=== PATIENT | male | born 1985 | race Caucasian/White ===

== ENCOUNTER 2018-09-28 09:51 | Emergency (ER) | payer SELFPAY ==
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
== END 2018-09-28 12:30 | disposition home or self-care (01) ==
LOC: ER 09:51
DX: S43.401A Unspecified sprain of right shoulder joint, initial encounter (principal); M75.101 Unspecified rotator cuff tear or rupture of right shoulder, not specified as traumatic; V49.9XXA Car occupant (driver) (passenger) injured in unspecified traffic accident, initial encounter; F17.210 Nicotine dependence, cigarettes, uncomplicated
CPT/HCPCS: 99283

== ENCOUNTER 2023-01-03 12:21 | Emergency (ER) | payer SELFPAY ==
[2023-01-03] MEDS ORDERED: DIAZEPAM 10 MG/2 ML INJ SYRINGE ONE (12:59)
[2023-01-03 13:22] LABS: Absolute Lymphocytes (CBC) 2.1 K/uL (0.7-4.9); Hematocrit 45.9 % (39.6-49.0); Lymphocytes % 26.3 % (15.3-44.8); MCV 87.8 fL (80-100); MPV 9.4 fL (7.6-11.3); Platelets 238 thou/uL (152-406); RBC Red Blood Cell Count 5.22 M/uL (4.33-5.43)
--- NOTE | 2023-01-03 13:47 | RAD REPORT ---
EXAM DESCRIPTION: Marco Single View01/03/2023 1:37 pm CLINICAL HISTORY: dyspne COMPARISON: No comparisons TECHNIQUE: Portable AP view of the chest. FINDINGS: The lungs are clear. No pneumothorax or effusion. The cardiomediastinal contours are unrem arkable. IMPRESSION: No acute cardiopulmonary process.
[2023-01-03 13:54] LABS: ALT/SGPT 25 U/L (16-61); AST/SGOT 21 U/L (15-37); Albumin 4.2 g/dL (3.4-5.0); Alkaline Phosphatase 96 U/L (45-117); BUN Blood Urea Nitrogen 14 mg/dL (7-18); Bicarbonate 25 mEq/L (21-32); Bilirubin Direct 0.3 mg/dL (0-0.2); Bilirubin Indirect, Calculated 0.9 mg/dL (0.2-0.8); Bilirubin Total 1.2 mg/dL (0.2-1.0); Glomerular Filtration Rate 84 ml/min (=/>90); Glucose Level 93 mg/dL (74-106); NT PRO-BNP 102 pg/mL (<125); Potassium 3.4 mEq/L (3.5-5.1); Protein, Total 7.6 g/dL (6.4-8.2); Sodium Level 140 mEq/L (136-145)
[2023-01-03 14:09] LABS: Troponin High Sensitivity < 3.0 pg/mL (<58.9)
--- NOTE | 2023-01-03 14:31 | ER ---
Nurse's Notes [facility] Name: Markell Byrd Age: 37 yrs Sex: Male : 1985 Arrival Date: 01/03/2023 Time: 12:21 Bed 19 Private MD: Diagnosis: Dyspnea;Panic disorder [episodic paroxysmal anxiety] without agoraphobia Presentation: 01/03 12:23 Chief complaint: Patient states: Shortness of breath for about a month, mostly when nj1 driving. "I have to stop and calm myself down". "Seems to be more frequent, even when i just get up.". Coronavirus screen: Vaccine status: Patient reports being unvaccinated. Ebola Screen: Patient denies travel to an Ebola-affected area in the 21 days before illness onset. Initial Sepsis Screen: Does the patient meet any 2 criteria? RR > 20 per min. No. Patient's initial sepsis screen is negative. Does the patient have a suspected source of infection? No. Patient's initial sepsis screen is negative. Risk Assessment: Do you want to hurt yourself or someone else? Patient reports no desire to harm self or others. Onset of symptoms was November 2022. 12:23 Method Of Arrival: Ambulatory [facility] [place] 12:23 Acuity: JOSEF 3 nj1 Triage Assessment: 14:00 General: Appears in no apparent distress. Behavior is anxious. db 15:16 Respiratory: Reports shortness of breath Onset: The symptoms/episode began/occurred db gradually, the patient has mild shortness of breath. Historical: - Allergies: 12:26 No Known Allergies; nj1 - PMHx: 12:26 None; nj1 - PSHx: 12:26 None; nj1 - Immunization history:: Client reports having NOT received the Covid vaccine. - Social history:: Smoking status: Reported history of juuling and/or vaping. Screenin:16 [facility] ED Fall Risk Assessment (Adult) History of falling in the last 3 months, db including since admission No falls in past 3 months (0 pts) Confusion or Disorientation No (0 pts) Intoxicated or Sedated No (0 pts) Impaired Gait No (0 pts) Mobility Assist Device Used No (0 pt) Altered Elimination No (0 pt) Score/Fall Risk Level 0 - 2 = Low Risk Oriented to surroundings, Maintained a safe environment. Abuse screen: Denies threats or abuse. Denies injuries from another. Nutritional screening: No deficits noted. Tuberculosis screening: No symptoms or risk factors identified. Assessment: 12:39 Reassessment:. Reassessment: Patient appears in no apparent distress at this time. db Patient and/or family updated on plan of care and expected duration. Pain level reassessed. Patient is alert, oriented x 3, equal unlabored respirations, skin warm/dry/pink. General: Appears in no apparent distress. General: Behavior is cooperative, anxious. Pain: Denies pain. Respiratory: Airway is patent Respiratory effort is even, unlabored, Respiratory pattern is regular, symmetrical, Breath sounds are clear bilaterally. 12:39 Cardiovascular: Reports shortness of breath. db 13:15 Reassessment: Patient appears in no apparent distress at this time. Patient and/or db family updated on plan of care and expected duration. Pain level reassessed. Patient is alert, oriented x 3, equal unlabored respirations, skin warm/dry/pink. FEELS BETTER AFTER MEDICATION ADMINISTRATION Patient denies pain at this time. Patient states feeling better. Patient states symptoms have improved. Neuro: Level of Consciousness is awake, alert, obeys commands. Cardiovascular: Denies chest pain, Rhythm is sinus bradycardia. 14:00 Reassessment: Patient appears in no apparent distress at this time. Patient and/or db family updated on plan of care and expected duration. Pain level reassessed. Patient is alert, oriented x 3, equal unlabored respirations, skin warm/dry/pink. Patient states feeling better. Patient states symptoms have improved. 15:00 Reassessment: No changes from previously documented assessment. Patient and/or family db updated on plan of care and expected duration. Pain level reassessed. Patient is alert, oriented x 3, equal unlabored respirations, skin warm/dry/pink. Vital Signs: 12:23 BP 119 / 84; Pulse 74; Resp 22; Temp 98.3; Pulse Ox 100% ; Weight 63.5 kg; Height 5 ft. nj1 9 in. ; Pain 0/10; 13:00 BP 108 / 83; Pulse 53; Resp 14; Pulse Ox 97% on 2 lpm NC; db 14:00 BP 109 / 71; Pulse 55; Resp 14; Pulse Ox 100% on R/A; db 14:30 BP 107 / 78; Pulse 54; Resp 16; Pulse Ox 100% on R/A; db 12:23 Body Mass Index 20.67 (63.50 kg, 175.26 cm) nj1 12:23 Pain Scale: Adult ky1 ED Course: 12:22 Patient arrived in ED. im 12:26 Triage completed. nj1 12:26 Arm band placed on right wrist. nj1 12:28 Ishmael Lee MD is Attending Physician. jr11 12:34 Altagracia Carranza, RN is Primary Nurse. db 13:00 Inserted saline lock: 20 gauge in right antecubital area, using aseptic technique. db Blood collected. 13:38 XRAY Chest (1 view) In Process Unspecified. EDKY 14:31 Bakari Phillip MD is Referral Physician. jr11 15:00 Patient has correct armband on for positive identification. Bed in low position. Call db light in reach. Side rails up X 1. Provided Education on: DISCHARGE. 15:00 No provider procedures requiring assistance completed. IV discontinued, intact, db bleeding controlled, No redness/swelling at site. Administered Medications: 13:01 Drug: Diazepam IVP 5 mg Route: IVP; Site: right antecubital; db 15:00 Follow up: Response: No adverse reaction db Medication: 15:00 VIS not applicable for this client. db Outcome: 14:31 Discharge ordered by . jr11 15:00 Discharged to home ambulatory, with family. db 15:00 Condition: stable 15:00 Discharge instructions given to patient, Instructed on discharge instructions, follow up and referral plans. 15:17 Patient left the ED. db Signatures: Dispatcher [employer] EDKY Ishmael Lee MD MD jr11 Altagracia Carranza, BILL RN db Coretta Mckeon RN RN nj1 Itzel Zepeda im Corrections: (The following items were deleted from the chart) 13:16 12:39 Reassessment: Patient appears in no apparent distress at this time. Patient db and/or family updated on plan of care and expected duration. Pain level reassessed. Patient is alert, oriented x 3, equal unlabored respirations, skin warm/dry/pink. db
--- NOTE | 2023-01-03 14:31 | EDPHYS ---
Physician Documentation [facility] Name: Markell Byrd Age: 37 yrs Sex: Male : 1985 Arrival Date: 01/03/2023 Time: 12:21 Bed 19 Private MD: ED Physician Ishmael Lee HPI: 01/03 12:41 Patient is a 37-year-old male, has been having intermittent shortness of breath with jr11 tingling, sense of impending doom over the last month. This worsened over the last week. Patient had a pulse oximeter from a neighbor, it was fluctuating so brought him in for evaluation. Patient otherwise denies any chest pain. Denies exertional pain, no tearing pain, does not radiate to the back, does not cross the diaphragm. No diaphoresis, no vomiting. No syncope or near-syncope. . Historical: - Allergies: 12:26 No Known Allergies; nj1 - PMHx: 12:26 None; nj1 - PSHx: 12:26 None; nj1 - Immunization history:: Client reports having NOT received the Covid vaccine. - Social history:: Smoking status: Reported history of juuling and/or vaping. ROS: 12:41 All other systems are negative. jr11 Exam: 12:41 Constitutional: anxious Head/Face: Normocephalic, atraumatic. Eyes: Extra-ocular jr11 motions intact. Lids and lashes normal. Conjunctiva and sclera are non-icteric and not injected. Cornea within normal limits. Periorbital areas with no swelling, redness, or edema. ENT: Nares patent. No nasal discharge, no septal abnormalities noted. Oropharynx with no redness, swelling, or masses, exudates, or evidence of obstruction, uvula midline. Mucous membranes moist. Neck: Trachea midline, no thyromegaly or masses palpated, and no cervical lymphadenopathy. Supple, full range of motion without nuchal rigidity, or vertebral point tenderness. No Meningismus. Chest/axilla: Normal chest wall appearance and motion. Nontender with no deformity. No lesions are appreciated. Respiratory: Lungs have equal breath sounds bilaterally, clear to auscultation and percussion. No rales, rhonchi or wheezes noted. No increased work of breathing, no retractions or nasal flaring. Abdomen/GI: Soft, non-tender, with normal bowel sounds. No distension or tympany. No guarding or rebound. No evidence of tenderness throughout. Back: No spinal tenderness. No costovertebral tenderness. Full range of motion. Skin: Warm, dry with normal turgor. Normal color with no rashes, no lesions, and no evidence of cellulitis. MS/ Extremity: Pulses equal, no cyanosis. Neurovascular intact. Full, normal range of motion. Neuro: Awake and alert, GCS 15, oriented to person, place, time, and situation. No gross motor or sensory deficits. Vital Signs: 12:23 BP 119 / 84; Pulse 74; Resp 22; Temp 98.3; Pulse Ox 100% ; Weight 63.5 kg; Height 5 ft. nj1 9 in. ; Pain 0/10; 13:00 BP 108 / 83; Pulse 53; Resp 14; Pulse Ox 97% on 2 lpm NC; db 14:00 BP 109 / 71; Pulse 55; Resp 14; Pulse Ox 100% on R/A; db 14:30 BP 107 / 78; Pulse 54; Resp 16; Pulse Ox 100% on R/A; db 12:23 Body Mass Index 20.67 (63.50 kg, 175.26 cm) nj1 12:23 Pain Scale: Adult nj1 MDM: 12:39 Patient medically screened. jr11 12:41 Differential diagnosis: Anemia Anxiety Reaction Patient is a 37-year-old with shortness jr11 of breath over a month, worse this week. Patient is PERC negative no concern for a PE. No chest pain, no arrhythmia on case monitor. hospital monitor interpreted by me shows normal sinus rhythm rate of 72. Patient otherwise with tingling, episodes of sense of impending doom, likely more secondary to anxiety. Denies SI HI. We will do a work-up, reassess. 13:20 ED course: EKG interpreted by me shows normal sinus rhythm, normal axis, normal jr11 intervals, no acute ST changes, EKG normal. hospital monitor interpreted by me shows normal sinus rhythm rate of 60. 14:30 ED course: Chest x-ray interpreted by me shows no pneumonia, no congestive heart jr11 failure. Labs benign, patient to follow-up primary care for anxiety management. No concern PE. 01/03 12:39 Order name: Basic Metabolic Panel; Complete Time: 14:30 jr11 08/19 12:39 Order name: CBC with Diff; Complete Time: 13:38 01/03 12:39 Order name: LFT's; Complete Time: 14:30 01/03 12:39 Order name: NT PRO-BNP; Complete Time: 14:30 01/03 12:39 Order name: Troponin HS; Complete Time: 14:30 01/03 12:40 Order name: COVID-19 SARS RT PCR; Complete Time: 14:30 01/03 12:39 Order name: XRAY Chest (1 view); Complete Time: 14:30 01/03 12:39 Order name: EKG; Complete Time: 12:40 01/03 12:39 Order name: Cardiac monitoring; Complete Time: 13:14 01/03 12:39 Order name: EKG - Nurse/Tech; Complete Time: 13:14 01/03 12:39 Order name: IV Saline Lock; Complete Time: 13:01/03 12:39 Order name: Labs collected and sent; Complete Time: 13:01/03 12:39 Order name: O2 Per Protocol; Complete Time: 13:01/03 12:39 Order name: O2 Sat Monitoring; Complete Time: 13:14 Administered Medications: 13:01 Drug: Diazepam IVP 5 mg Route: IVP; Site: right antecubital; db 15:00 Follow up: Response: No adverse reaction db Disposition Summary: 01/03/23 14:31 Discharge Ordered Location: Home [facility] Condition: Stable [facility] Diagnosis - Dyspnea jr11 - Panic disorder [episodic paroxysmal anxiety] without agoraphobia jr11 Followup: 11 - With: Bakari Phillip MD - When: 2 - 3 days - Reason: Recheck today's complaints Discharge Instructions: - Discharge Summary Sheet jr11 - Shortness of Breath, Adult jr11 - Managing Anxiety, Adult [facility] Forms: - Medication Reconciliation Form jr11 - Thank You Letter jr11 - Antibiotic Education jr11 - Prescription Opioid Use jr11 - Patient Portal Instructions jr11 - Leadership Thank You Letter jr11 Signatures: Dispatcher [employer] Ishmael Harrison MD MD jr11 Altagracia Carranza RN RN db Mike, Coretta, RN RN nj1
[2023-01-03 15:44] VITALS: TEMP 98.3
[2023-01-03 15:46] VITALS: O2SAT 100
[2023-01-03 15:47] VITALS: BP 107/78
--- NOTE | 2023-01-05 18:03 | EKG ---
Test Date: 2023-01-03 Test Time: 13:12:14 Channel Machine Operator: IVONNE MEASUREMENT RESULTS: Intervals: Rate: 55 [place]: 122 QRSD: 86 QT: 462 QTc: 441 [place]: P: 46 [place]: 122 QRS: 90 T: 65 INTERPRETIVE STATEMENTS: Sinus bradycardia Otherwise normal ECG No previous ECG available for comparison Electronically Signed On 01-05-23 17:58:18 CDT by Marcell Hall
== END 2023-01-03 15:17 | disposition home or self-care (01) ==
LOC: ER 12:21
DX: R06.00 Dyspnea, unspecified (principal); F41.0 Panic disorder [episodic paroxysmal anxiety]; Z20.822 Contact with and (suspected) exposure to COVID-19
CPT/HCPCS: 36415; 71045; 80048; 80076; 83880; 84484; 85025; 87635; 93005; 96374; 99284; J3360